=== PATIENT | male | born 1965 | race Caucasian/White ===

== ENCOUNTER 2017-05-01 16:40 | Emergency (ER) | payer OTHER | END 2017-05-01 19:50 | disposition home or self-care (01) | LOC: ER 16:40 | DX: F32.9 Major depressive disorder, single episode, unspecified (principal); M54.5 Low back pain; M53.3 Sacrococcygeal disorders, not elsewhere classified; M54.2 Cervicalgia; G89.29 Other chronic pain; F41.9 Anxiety disorder, unspecified; F17.210 Nicotine dependence, cigarettes, uncomplicated ==